=== PATIENT | male | born 1965 | race Asian ===

== ENCOUNTER 2022-05-20 04:11 | Emergency (ER) | payer OTHER ==
[~2022-05-20] VITALS: Ht 170.2 cm; Wt 82.7 kg
[2022-05-20] MEDS ORDERED: PHENYLEPHRINE HCL 1% 15 ML NASAL SPRAY NASAL ONE (06:15)
[2022-05-20] MEDS ORDERED: AmLODIPine BESYLATE 5 MG TABLET PO ONE (07:45)
[2022-05-20] MEDS ORDERED: HydrALAZINE HCL 10 MG TABLET PO ONE (08:45)
[2022-05-20 10:20] VITALS: BP 155/100
== END 2022-05-20 10:34 | disposition home or self-care (01) ==
LOC: EMS 04:14
DX: R04.0 Epistaxis (principal); I10 Essential (primary) hypertension; E78.00 Pure hypercholesterolemia, unspecified
CPT/HCPCS: 30901; 99285; Z7502; Z7610